=== PATIENT | female | born 1960 | race Caucasian/White ===

== ENCOUNTER → 2022-02-02 11:38 | Outpatient (BNVA) | payer MEDICAID, SELFPAY | PROVIDERS: Visit Provider Orthopaedic Surgery | DX: S22.089A Unspecified fracture of T11-T12 vertebra, initial encounter for closed fracture; V89.2XXA Person injured in unspecified motor-vehicle accident, traffic, initial encounter | CPT/HCPCS: 72100; 99203 ==

== ENCOUNTER → 2022-02-16 13:49 | Outpatient (BNVA) | payer MEDICAID, SELFPAY | PROVIDERS: Visit Provider Orthopaedic Surgery | DX: S22.080D Wedge compression fracture of T11-T12 vertebra, subsequent encounter for fracture with routine healing (principal); V49.9XXD Car occupant (driver) (passenger) injured in unspecified traffic accident, subsequent encounter; M25.569 Pain in unspecified knee | CPT/HCPCS: 72100; 99213 ==

== ENCOUNTER → 2022-03-02 11:06 | Outpatient (BNVA) | payer MEDICAID, SELFPAY | PROVIDERS: Visit Provider Orthopaedic Surgery | DX: M23.204 Derangement of unspecified medial meniscus due to old tear or injury, left knee (principal); M22.42 Chondromalacia patellae, left knee; S86.912A Strain of unspecified muscle(s) and tendon(s) at lower leg level, left leg, initial encounter; V49.49XA Driver injured in collision with other motor vehicles in traffic accident, initial encounter | CPT/HCPCS: 73560; 73565 ==

== ENCOUNTER → 2022-03-30 13:45 | Outpatient (BNVA) | payer MEDICAID, SELFPAY | PROVIDERS: Visit Provider Orthopaedic Surgery | DX: S22.080D Wedge compression fracture of T11-T12 vertebra, subsequent encounter for fracture with routine healing (principal); V49.9XXD Car occupant (driver) (passenger) injured in unspecified traffic accident, subsequent encounter | CPT/HCPCS: 72100 ==

== ENCOUNTER → 2022-04-20 14:19 | Outpatient (BNVA) | payer MEDICAID, SELFPAY | PROVIDERS: Visit Provider Orthopaedic Surgery | DX: S22.080D Wedge compression fracture of T11-T12 vertebra, subsequent encounter for fracture with routine healing (principal); V49.9XXD Car occupant (driver) (passenger) injured in unspecified traffic accident, subsequent encounter | CPT/HCPCS: 72080 ==

== ENCOUNTER 2022-05-05 09:59 | Outpatient (CLI) | payer MEDICAID, SELFPAY ==
--- NOTE | 2022-05-05 10:45 | MR_ITS ---
WS: [id number] MRI LEFT KNEE HISTORY: knee pain COMPARISON: 03/02/2022 Anterior cruciate ligament: Small caliber but intact ACL. Posterior cruciate ligament: Intact. Medial collateral ligament: Mild displacement from the joint line by an extruded meniscus. Posterior lateral corner structures: Intact. Medial menisci: Meniscus is partially extruded from the joint line. The body of the meniscus extends lateral from the joint line and inferior to the tibial plateau by 5 mm. Horizontal tear in the multimedia teacher ior horn extends to the intra-articular surface. Lateral meniscus: Intact. Normal signal, size and shape. Extensor mechanism: Distal quadriceps tendon and patellar tendons are. Intact. Fluid and soft tissue: No joint effusion. Tiny Elmore's cyst. Osseous and articular structures: Patellofemoral compartment: Mild narrowing of the patellofemoral joint space. No marrow edema. Mild c hondromalacia. Medial compartment: Mild narrowing of the medial compartment. Moderate chondromalacia. Loss of cartil age along the tibial plateau and femoral condyle. Lateral compartment: Very mild narrowing of the lateral compartment with a few areas of cartilage thi nning and fissuring along the weightbearing surface. MR/MR knee LT wo con* [id number] IMPRESSION: 1. Body of the medial meniscus is partially extruded from the joint line and e xtends inferior to the tibial plateau. 2. Horizontal tear posterior horn medial meniscus. 3. Mucoid degeneration ACL. 4. 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 5. Very mild narrowing lateral compartment with a few focal areas of thinning and fissuring of the cartilage. 6. Very small Elmore's cyst.
== END 2022-05-05 10:00 | disposition home or self-care (01) ==
PROVIDERS: PCP Family Medicine; Visit Provider Orthopaedic Surgery
DX: M71.22 Synovial cyst of popliteal space [Baker], left knee (principal); S83.242A Other tear of medial meniscus, current injury, left knee, initial encounter; X58.XXXA Exposure to other specified factors, initial encounter
CPT/HCPCS: 73721

== ENCOUNTER → 2022-09-30 13:23 | Outpatient (BNVA) | payer MEDICAID, SELFPAY | PROVIDERS: PCP Family Medicine; Visit Provider Orthopaedic Surgery | DX: S22.089D Unspecified fracture of T11-T12 vertebra, subsequent encounter for fracture with routine healing (principal); V49.9XXD Car occupant (driver) (passenger) injured in unspecified traffic accident, subsequent encounter | CPT/HCPCS: 72080 ==

== ENCOUNTER → 2023-01-25 11:23 | Outpatient (BNVA) | payer MEDICAID, SELFPAY | PROVIDERS: PCP Family Medicine; Visit Provider Physician Assistant | DX: S22.000A Wedge compression fracture of unspecified thoracic vertebra, initial encounter for closed fracture (principal); V89.2XXD Person injured in unspecified motor-vehicle accident, traffic, subsequent encounter | CPT/HCPCS: 72080 ==

== ENCOUNTER → 2023-03-17 08:40 | Outpatient (BNVA) | payer MEDICAID, SELFPAY | PROVIDERS: PCP Family Medicine; Visit Provider Orthopaedic Surgery | DX: M51.36 Other intervertebral disc degeneration, lumbar region (principal); M47.814 Spondylosis without myelopathy or radiculopathy, thoracic region; S22.080S Wedge compression fracture of T11-T12 vertebra, sequela; V89.2XXS Person injured in unspecified motor-vehicle accident, traffic, sequela | CPT/HCPCS: 72072 ==

== ENCOUNTER 2023-04-11 09:25 | Outpatient (CLI) | payer MEDICAID, SELFPAY ==
--- NOTE | 2023-04-11 09:30 | NM_ITS ---
WS: [id number] NUCLEAR MEDICINE BONE SCAN Radiopharmaceutical: 18.6 Tc-99m MDP mCi IV Injection site: Antecubital Postinjection imaging delay: 1 hr CLINICAL INFORMATION: thoracic pain COMPARISON: Radiograph 03/17/2023 FINDINGS: Bone lesions: Only trace radiotracer uptake in the thoracic spine at the T11 level compatible with late subacute to chronic compression. Soft tissue contours: Normal. Kidneys: Normal. Other findings: Degenerative type uptake in both AC joints, both knees, and both ankles. IMPRESSION: Only trace radiotracer uptake in the thoracic spine at the T11 level compatible with late subacute to chronic compression.
== END 2023-04-11 09:26 | disposition home or self-care (01) ==
LOC: RAD 09:25
PROVIDERS: PCP Family Medicine; Visit Provider Orthopaedic Surgery
DX: S22.080A Wedge compression fracture of T11-T12 vertebra, initial encounter for closed fracture (principal); X58.XXXA Exposure to other specified factors, initial encounter
CPT/HCPCS: 78306; A9561

== ENCOUNTER → 2023-04-21 14:32 | Outpatient (BNVA) | payer MEDICAID, SELFPAY | PROVIDERS: PCP Family Medicine; Visit Provider Orthopaedic Surgery | DX: S22.000A Wedge compression fracture of unspecified thoracic vertebra, initial encounter for closed fracture (principal); M54.9 Dorsalgia, unspecified; X58.XXXA Exposure to other specified factors, initial encounter | CPT/HCPCS: 36415; 80053; 81001; 85025; 87086; 87186 ==

== ENCOUNTER → 2023-04-29 11:23 | Outpatient (BNVA) | payer MEDICAID, SELFPAY | PROVIDERS: PCP Family Medicine; Visit Provider Family Medicine | DX: Z01.818 Encounter for other preprocedural examination (principal) | CPT/HCPCS: 81003 ==

== ENCOUNTER 2023-05-06 09:32 | Day surgery (SDC) | payer MEDICAID, SELFPAY ==
[2023-05-06] VITALS (10 sets, daily range): BP systolic 135–171; BP diastolic 69–106; PULSE 72–91; RESP 10–23; TEMP 36.1; O2SAT 93–100; BMI 32.9
--- NOTE | 2023-05-06 09:48 | SC_ITS ---
WS: [id number] INTRAOPERATIVE TECHNIQUE: 4 Spot fluoroscopic images for intraoperative purposes. FLUOROSCOPY TIME: 87.7 seconds CLINICAL INFORMATION: T11 kyphoplasty COMPARISON: 03/17/2023 FINDINGS: Intraoperative changes of the T11 kyphoplasty. Anterior wedging of T11 unchanged in appearance. IMPRESSION: Images obtained for intraoperative purposes.
--- NOTE | 2023-05-06 10:02 | ANES.PREANE2 ---
Pre-Anesthetic Assessment Height/Weight: Height 1.73 m Preop Diagnosis: T11 compression fracture Operation Date: 05/06/23 11:05 Proposed Procedures p Kyphoplasty T11(Not Applicable) - Preet Mir DO Familial anesthetic complications: None Was Beta Selina taken within 24 hours: N/A Was Clonidine taken within 24 hours: N/A Last intake: > 8hrs Social Alcohol and No tobacco Exam alert, oriented x 3, clear to auscultation bilaterally and regular rate & rhythm Airway Comments: Comments: Front two Inscisors on either side are a little loose, requesting please be super careful, so i don't have to loose them just yet. Anesthetic Plan ASA status: 2 Anesthesia: General Risk of > 500 ml blood loss (7ml/kg in children): No Medications/Allergies Home Medications Medication Instructions Recorded Confirmed Last Taken Type cyclobenzaprine 5 mg tablet 5 mg PO TID PRN Pain 02/02/22 05/05/23 05/05/23 History docusate sodium 100 mg capsule 100 mg PO DAILY 02/02/22 05/05/23 05/05/23 History oxycodone-acetaminophen 10 mg-325 1 tab PO Q4H PRN Pain 02/02/22 05/05/23 05/05/23 History mg tablet ciprofloxacin PO 2XD 05/06/23 05/05/23 20:00 History Allergies Allergy/AdvReac Type Severity Reaction Status Date / Time aspirin [From Fiorinal] Allergy Intermediate ADR-Dizzine Verified 05/05/23 13:03 ss butalbital [From Fiorinal] Allergy Intermediate ADR-Dizzine Verified 05/05/23 13:03 ss caffeine [From Fiorinal] Allergy Intermediate ADR-Dizzine Verified 05/05/23 13:03 ss wasp stings Allergy anaphylaxis Uncoded 05/05/23 13:03 PFS Anesthesia Social History Smoking and tobacco/nicotine status: former use of tobacco/nicotine (30 years ago) Data Anesthesia Cardiac Studies: No Data to Display
[2023-05-06] MEDS: sodium chloride 0.9% 1,000 ML 30 ML IV (10:20)
--- NOTE | 2023-05-06 10:51 | W.PM.OPSUD ---
Surgery/Procedure H&P Update DATE OF PROCEDURE: May 06, 2023 DATE H&P PERFORMED: 04/29/23 H&P UPDATE INFORMATION: I have reviewed H&P completed within last 30 days, I have examined patient prior to procedure and No changes to prior documentation PREOP DIAGNOSIS: T11 compression fracture PLANNED PROCEDURE: Operation Date: 05/06/23 11:05 Proposed Procedures p Kyphoplasty T11(Not Applicable) - Preet Mir, DO
[2023-05-06] MEDS: ceFAZolin 2,000 MG in sodium chloride 0.9% (plus) 50 ML 100 MG IV (11:00)
[2023-05-06] MEDS: lidocaine-epi 2% 20 mL INJ 10 ML INJECTION (11:32)
--- NOTE | 2023-05-06 12:08 | PM.OP ---
Operative Report Date of procedure: May 06, 2023 Pre-op diagnosis: T11 wedge traumatic osteoporotic compression fracture Post-op diagnosis: same Procedure done: T11 kyphoplasty Surgeon: Preet Mir DO Estimated blood loss (mL): 5 Procedure: T11 kyphoplasty Patient was brought to the procedure after undergoing anesthesia was placed in the prone position. All areas appear well-padded. Patient's prepped draped normal sterile fashion. Skin incision is made over the T11 pedicle both on the right left side. Skin incision was made awl was inserted bilaterally. The drill was then inserted bilaterally. Balloon was inflated bilaterally. And then cement was inserted bilaterally the cement was watched under biplanar fluoroscopy and showed good fill. At this point AP lateral fluoroscopy was taken. Wounds were irrigated and closed with nylon suture. Sterile dressings were applied patient was transferred to the PACU in stable condition.
[2023-05-06] MEDS: fentaNYL 50 mcg/mL INJ 2mL IVP (12:11)
--- NOTE | 2023-05-06 12:30 | ANE.PACU2 ---
Inpatient post-anesthesia follow up: Airway intact: Yes Vital signs: Temperature 97 F Pulse Rate 78 Respiratory Rate 16 Blood Pressure 144/92 Pulse Oximetry 93 Oxygen Delivery Me thod Room Air Oxygen Flow Rate Fraction of Inspir ed Oxygen Hydration adequate: Yes Nausea and vomiting: No Pain level: 1 Mental status: Baseline
[2023-05-06] MEDS: oxyCODONE 5 mg IR Tab/Cap 10 MG PO (13:00)
== END 2023-05-06 13:35 | disposition home or self-care (01) ==
PROVIDERS: PCP Family Medicine; Visit Provider Orthopaedic Surgery
PROC: (CPT 22513; principal; 2023-05-06 11:05)
DX: S22.080A Wedge compression fracture of T11-T12 vertebra, initial encounter for closed fracture (principal); X58.XXXA Exposure to other specified factors, initial encounter; Z87.891 Personal history of nicotine dependence
CPT/HCPCS: 22513; 76000; J0690; J1100; J2405; J2704; J2710; J3010; J3490; J7030